=== PATIENT | male | born 1975 ===

== ENCOUNTER 2023-01-21 04:56 | Emergency (ER) | payer OTHER ==
[~2023-01-21] VITALS: Ht 172.7 cm; Wt 65.8 kg
[2023-01-21] MEDS ORDERED: JANTOVEN7.5 M2 PO (05:14)
[2023-01-21 05:16] VITALS: BP 181/81
[2023-01-21 07:07] LABS: International Normalized Ratio 2.04; Prothrombin Time Results 20.6 Sec (9.7-11.5)
[2023-01-21] MEDS ORDERED: LIDO700A20 TOP (07:30)
== END 2023-01-21 07:45 | disposition home or self-care (01) ==
LOC: ER 04:56
PROVIDERS: Student in an Organized Health Care Education/Training Program
DX: S00.03XA Contusion of scalp, initial encounter (principal); S20.212A Contusion of left front wall of thorax, initial encounter; Z79.01 Long term (current) use of anticoagulants; W10.9XXA Fall (on) (from) unspecified stairs and steps, initial encounter
CPT/HCPCS: 70450; 71046; 85610; A9270